=== PATIENT | female | born 1965 | race Caucasian/White ===

== ENCOUNTER 2020-07-12 11:09 | Emergency (ER) | payer BC ==
[~2020-07-12] VITALS: Ht 167.6 cm; Wt 97.5 kg
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
[2020-07-12] MEDS ORDERED: IBUP-1955 PO (11:51)
--- NOTE | 2020-07-12 12:06 | NUR ---
The patient is alert and oriented x4. Denies pain at this time. In room air and denies SOB. Repsiration regular and unlabored. Bilateral knee dressing done. Patient discharged to home in stable condition. Written and verbal after care instructions given. Patient verbalizes understanding of instruction. The patient left ER in stable condition with daughter.
[2020-07-12 12:07] VITALS: BP 132/84
== END 2020-07-12 12:09 | disposition home or self-care (01) ==
LOC: ER 11:20
DX: T24.221A Burn of second degree of right knee, initial encounter (principal); T24.122A Burn of first degree of left knee, initial encounter; Z85.3 Personal history of malignant neoplasm of breast; X10.0XXA Contact with hot drinks, initial encounter; Y93.89 Activity, other specified; Y92.89 Other specified places as the place of occurrence of the external cause; Y99.8 Other external cause status
CPT/HCPCS: 16020; 99282; A6403